=== PATIENT | female | born 2000 | race Caucasian/White ===

== ENCOUNTER 2022-03-26 18:17 | Emergency (ER) | payer MEDICARE ==
[~2022-03-26] VITALS: Ht 157.5 cm; Wt 40.9 kg
[2022-03-26] MEDS ORDERED: VITAMIN D310 MC3 PO (18:48)
[2022-03-26] MEDS ORDERED: LEXAPRO 10MG10 MG PO (18:48)
[2022-03-26] MEDS ORDERED: STRATTERA 40MG40 MG PO (18:49)
[2022-03-26] MEDS ORDERED: REXULTI1 MG PO (18:50)
[2022-03-26 19:37] LABS: BASO # 0.02 K/mm3 (0.02-0.10); EOS % 3.6 % (1.0-5.0); HEMATOCRIT 34.6 % (37.0-47.0); HEMOGLOBIN 11.3 g/dL (12.5-16.0); LYMPH# 2.56 K/mm3 (1.50-4.00); MEAN CELL VOLUME 91 fl (78-100); MEAN CORPUSCULAR HEMOGLOBIN 30 pg (27-31); MEAN CORPUSCULAR HGB CONC 33 g/dL (33-37); MEAN PLATELET VOLUME 9.3 fl (7.4-10.4); MONO # 0.61 K/mm3 (0.20-0.80); PLATELET COUNT 304 K/mm3 (130-400); RED BLOOD COUNT 3.82 M/mm3 (4.10-5.30); RED CELL DISTRIBUTION WIDTH 13.2 % (11.5-14.5); WHITE BLOOD COUNT 8.4 K/mm3 (4.8-10.8)
[2022-03-26 19:43] LABS: URINE APPEARANCE CLEAR; URINE BILIRUBIN NEGATIVE (NEGATIVE); URINE BLOOD NEGATIVE (NEGATIVE); URINE COLOR YELLOW; URINE GLUCOSE NEGATIVE (NEGATIVE); URINE KETONE NEGATIVE (NEGATIVE); URINE LEUKOCYTE ESTERASE NEGATIVE (NEGATIVE); URINE MUCUS PRESENT (NOT PRESENT); URINE NITRATE NEGATIVE (NEGATIVE); URINE PROTEIN(semi-quant) NEGATIVE (NEGATIVE); URINE UROBILINOGEN NORMAL (NORMAL); URINE WBC 0-1 /hpf (0-3)
[2022-03-26 19:49] LABS: POTASSIUM 3.3 mmol/L (3.5-5.1); SODIUM 140 mmol/L (136-145)
[2022-03-26 19:50] LABS: CALCIUM 8.7 mg/dL (8.3-10.5)
[2022-03-26 19:51] LABS: GLUCOSE 80 mg/dL (65-105)
[2022-03-26 19:52] LABS: CARBON DIOXIDE 19 mmol/L (22-29); TOTAL PROTEIN 6.4 g/dL (6.4-8.3)
[2022-03-26 19:53] LABS: TOTAL BILIRUBIN 0.5 mg/dL (0.2-1.2)
[2022-03-26 19:56] LABS: ALCOHOL IN-HOUSE < 10 mg/dL (<10)
[2022-03-26 19:57] LABS: AST-SGOT 21 U/L (5-34)
[2022-03-26 19:58] LABS: ALT/SGPT 9 U/L (0-55)
[2022-03-26 20:00] LABS: ACETAMINOPHEN < 1 ug/mL
[2022-03-27 00:37] VITALS: BP 120/74
== END 2022-03-27 00:38 | disposition home or self-care (01) ==
LOC: ED 18:17
PROVIDERS: Nurse Practitioner Family
DX: F41.9 Anxiety disorder, unspecified (principal); Z28.310 Unvaccinated for COVID-19